=== PATIENT | female | born 1970 | race Hispanic/Latino ===

== ENCOUNTER → 2018-08-11 | Outpatient (CLI) | payer MEDICAID | END | disposition home or self-care (01) | LOC: RAH 15:49 | PROVIDERS: ATTEND Family Medicine | DX: M54.2 Cervicalgia (principal) | CPT/HCPCS: 72040 ==

== ENCOUNTER 2021-04-15 22:07 | Emergency (ER) | payer OTHER ==
[~2021-04-15] VITALS: Ht 167.6 cm; Wt 83.9 kg
[2021-04-15 23:38] LABS: BASOPHILS % (AUTO) 0.2 % (0.0-5.0); EOSINOPHILS % (AUTO) 2.1 % (0.0-8.0); MEAN CORPUSCULAR HEMOGLOBIN 30.6 pg (27.0-33.0); MEAN CORPUSCULAR HGB CONC 34.1 g/dL (32.0-36.0); MEAN CORPUSCULAR VOLUME 89.7 fL (79-99); MONOCYTES % (AUTO) 4.3 % (3.0-13.0); NEUTROPHILS % (AUTO) 89.9 % (40.0-77.0); PLATELET COUNT (AUTO) 228 K/uL (130-400); RED BLOOD CELL COUNT(AUTO) 5.46 MIL/uL (4.00-5.50); RED CELL DISTRIBUTION WIDTH 14.2 % (11.0-15.5); WHITE BLOOD COUNT (AUTO) 8.1 K/uL (4.8-10.8)
[2021-04-16 00:10] LABS: CREATININE 0.9 mg/dL (0.5-1.5); POTASSIUM 3.6 mmol/L (3.5-5.1)
[2021-04-16 00:14] LABS: ALBUMIN 3.7 g/dL (3.5-5.0); BILIRUBIN,TOTAL 0.9 mg/dL (0.2-1.0); TOTAL PROTEIN, SERUM 7.7 g/dL (6.0-8.3)
[2021-04-16] MEDS ORDERED: PROMETHAZINE HCL 25 MG/ML 1ML AMPULE IM SCH (01:45)
[2021-04-16] MEDS ORDERED: PANTOPRAZOLE SODIUM 40 MG TABLET.DR PO SCH (01:45)
[2021-04-16] MEDS ORDERED: ONDANSETRON ODT 4 MG TAB SL ONE (01:45)
[2021-04-16] MEDS ORDERED: FAMOTIDINE 20MG TAB 20 MG TAB PO ONE (01:45)
[2021-04-16] MEDS ORDERED: PANT40TA PO (01:51)
[2021-04-16] MEDS ORDERED: DICY20TA2 PO (01:51)
[2021-04-16] MEDS ORDERED: METO10TA41 PO (01:51)
[2021-04-16] MEDS ORDERED: ONDA4TAB10 PO (01:51)
[2021-04-16 01:59] VITALS: BP 116/75
== END 2021-04-16 02:34 | disposition home or self-care (01) ==
LOC: EDH 22:07
DX: K29.70 Gastritis, unspecified, without bleeding (principal); B34.9 Viral infection, unspecified; E11.9 Type 2 diabetes mellitus without complications; I10 Essential (primary) hypertension; Z79.4 Long term (current) use of insulin
CPT/HCPCS: 36415; 71045; 80053; 83690; 85025; 96372; 99284; J2550

== ENCOUNTER 2024-01-10 12:16 | Emergency (ER) | payer OTHER ==
[~2024-01-10] VITALS: Ht 165.1 cm; Wt 86.2 kg
[~2024-01-10 12:16] MED LIST: DICY20TA2 PO; METO10TA41 PO; ONDA4TAB10 PO; PANT40TA PO
[2024-01-10 12:59] LABS: BASOPHILS # (AUTO) 0.03 K/uL (0.00-0.20); BASOPHILS % (AUTO) 0.7 % (0.0-5.0); EOSINOPHILS # (AUTO) 0.09 K/uL (0.00-0.70); EOSINOPHILS % (AUTO) 2.2 % (0.0-8.0); HEMATOCRIT 42.8 % (36-48); IMMATURE GRANULOCYTE ABSOLUTE 0.01 K/uL (0-1); LYMPHOCYTES % (AUTO) 25.7 % (21.0-51.0); MEAN CORPUSCULAR HEMOGLOBIN 29.1 pg (27.0-33.0); MEAN CORPUSCULAR HGB CONC 32.9 g/dL (32.0-36.0); MEAN CORPUSCULAR VOLUME 88.2 fL (79-99); MONOCYTES # (AUTO) 0.4 K/uL (0.1-1.0); MONOCYTES % (AUTO) 9.9 % (3.0-13.0); NEUTROPHILS # (AUTO) 2.5 K/uL (1.8-7.7); NEUTROPHILS % (AUTO) 61.3 % (40.0-77.0); PLATELET COUNT (AUTO) 275 K/uL (130-400); RED BLOOD CELL COUNT(AUTO) 4.85 MIL/uL (4.00-5.50); RED CELL DISTRIBUTION WIDTH 13.5 % (11.0-15.5)
[2024-01-10 13:09] LABS: CREATININE 0.9 mg/dL (0.5-1.5); POTASSIUM 4.1 mmol/L (3.5-5.1)
[2024-01-10 13:14] LABS: ALBUMIN 3.3 g/dL (3.5-5.0); BILIRUBIN,TOTAL 0.9 mg/dL (0.2-1.0); TOTAL PROTEIN, SERUM 7.2 g/dL (6.0-8.3)
[2024-01-10] MEDS ORDERED: METH4TAB3 PO (16:17)
[2024-01-10] MEDS: SOLU-MEDROL 125MG VIAL IVP ONE (16:31)
[2024-01-10] MEDS: ALBUTEROL 0.083% 2.5 MG/3 ML INH IH ONE (16:31)
[2024-01-10 16:44] VITALS: PULSE 81; RESP 18
[2024-01-10 18:07] VITALS: BP 129/71; PULSE 78; RESP 16; O2SAT 98
== END 2024-01-10 18:08 | disposition home or self-care (01) ==
LOC: EDH 12:16
DX: J45.909 Unspecified asthma, uncomplicated (principal); J20.9 Acute bronchitis, unspecified; I10 Essential (primary) hypertension; E11.9 Type 2 diabetes mellitus without complications; E78.00 Pure hypercholesterolemia, unspecified; Z79.899 Other long term (current) drug therapy; Z90.49 Acquired absence of other specified parts of digestive tract; Z98.890 Other specified postprocedural states
CPT/HCPCS: 99285; 96374; 71045; 80053; 85025; 36415; 93005; 94640; J2930

== ENCOUNTER 2024-02-17 00:58 | Emergency (ER) | payer SELFPAY ==
[~2024-02-17] VITALS: Ht 167.6 cm; Wt 95.7 kg
[~2024-02-17 00:58] MED LIST changes: +METH4TAB3 PO; +ONDA-243 PO; -ONDA4TAB10 PO
[2024-02-17] MEDS: DiphenhydrAMINE HCL 50 MG/ML VIAL IV ONE (02:03)
[2024-02-17] MEDS: SOLU-MEDROL 125MG VIAL IVP ONE (02:03)
[2024-02-17] MEDS: VANCOMYCIN KIT 1 GM/250 ML IV.KIT IV ONE (02:10)
[2024-02-17] MEDS ORDERED: CLIN-141 PO (03:28)
[2024-02-17] MEDS ORDERED: DIPH50 PO (03:29)
[2024-02-17] MEDS ORDERED: IBUP-1493 PO (03:30)
[2024-02-17 05:03] VITALS: BP 144/79; PULSE 89; RESP 18; O2SAT 100
== END 2024-02-17 05:05 | disposition home or self-care (01) ==
LOC: EDH 00:58
DX: L03.032 Cellulitis of left toe (principal); T50.905A Adverse effect of unspecified drugs, medicaments and biological substances, initial encounter; Y92.89 Other specified places as the place of occurrence of the external cause; I10 Essential (primary) hypertension; E11.9 Type 2 diabetes mellitus without complications; E78.00 Pure hypercholesterolemia, unspecified; Z79.899 Other long term (current) drug therapy; Z90.49 Acquired absence of other specified parts of digestive tract; Z98.890 Other specified postprocedural states
CPT/HCPCS: 99284; 96365; 96375; J1200; J2919; J3370

== ENCOUNTER 2024-02-19 11:39 | Emergency (ER) | payer OTHER ==
[~2024-02-19] VITALS: Ht 167.6 cm; Wt 90.7 kg
[~2024-02-19 11:39] MED LIST changes: +CLIN-141 PO; +DIPH50 PO; +IBUP-1493 PO; -ONDA-243 PO; +ONDA4TAB10 PO
[2024-02-19 12:57] LABS: BASOPHILS # (AUTO) 0.02 K/uL (0.00-0.20); BASOPHILS % (AUTO) 0.3 % (0.0-5.0); EOSINOPHILS # (AUTO) 0.37 K/uL (0.00-0.70); EOSINOPHILS % (AUTO) 6.3 % (0.0-8.0); HEMATOCRIT 43.1 % (36-48); IMMATURE GRANULOCYTE ABSOLUTE 0.02 K/uL (0-1); LYMPHOCYTES # (AUTO) 1.3 K/uL (1.0-4.8); LYMPHOCYTES % (AUTO) 21.4 % (21.0-51.0); MEAN CORPUSCULAR HEMOGLOBIN 29.9 pg (27.0-33.0); MEAN CORPUSCULAR HGB CONC 32.7 g/dL (32.0-36.0); MEAN CORPUSCULAR VOLUME 91.3 fL (79-99); MONOCYTES # (AUTO) 0.5 K/uL (0.1-1.0); MONOCYTES % (AUTO) 9.1 % (3.0-13.0); NEUTROPHILS # (AUTO) 3.7 K/uL (1.8-7.7); NEUTROPHILS % (AUTO) 62.6 % (40.0-77.0); PLATELET COUNT (AUTO) 313 K/uL (130-400); RED BLOOD CELL COUNT(AUTO) 4.72 MIL/uL (4.00-5.50); RED CELL DISTRIBUTION WIDTH 15.7 % (11.0-15.5); WHITE BLOOD COUNT (AUTO) 5.9 K/uL (4.8-10.8)
[2024-02-19 13:03] LABS: CREATININE 0.7 mg/dL (0.5-1.0); POTASSIUM 3.5 mmol/L (3.5-5.1)
[2024-02-19 13:08] LABS: ALBUMIN 3.4 g/dL (3.5-5.0); BILIRUBIN,TOTAL 1.3 mg/dL (0.2-1.0); TOTAL PROTEIN, SERUM 6.9 g/dL (6.0-8.3)
[2024-02-19] MEDS: KETOROLAC 15MG/ML VIAL (15MG/ML) IV ONE (13:46)
[2024-02-19] MEDS: CEFTRIAXONE 1G VIAL IVPB ONE (13:48)
[2024-02-19] MEDS ORDERED: HYD25 PO (14:56)
[2024-02-19] MEDS: HYDROXYZINE 25 MG TABLET PO ONE (15:00)
[2024-02-19] MEDS: BACITRACIN 1 EACH PACKET TP ONE (15:00)
[2024-02-19] MEDS: LIDOCAINE HCL 1% 20 ML VIAL INJ SCH (15:08)
[2024-02-19 15:09] VITALS: BP 167/85; PULSE 84; RESP 18; O2SAT 98
== END 2024-02-19 15:57 | disposition home or self-care (01) ==
LOC: EDH 11:39
DX: L03.032 Cellulitis of left toe (principal); L29.9 Pruritus, unspecified; E11.9 Type 2 diabetes mellitus without complications; I10 Essential (primary) hypertension; Z79.1 Long term (current) use of non-steroidal anti-inflammatories (NSAID); Z79.899 Other long term (current) drug therapy; Z88.0 Allergy status to penicillin; Z90.49 Acquired absence of other specified parts of digestive tract; Z90.710 Acquired absence of both cervix and uterus
CPT/HCPCS: 99284; 96365; 10060; 96375; 80053; 85025; 87040 ×2; 83605; 36415; 73620; J0696; J1885

== ENCOUNTER 2024-12-17 18:13 | Emergency (ER) | payer OTHER ==
[~2024-12-17] VITALS: Ht 165.1 cm; Wt 86.2 kg
[~2024-12-17 18:13] MED LIST changes: +HYD25 PO; +ONDA-243 PO; -ONDA4TAB10 PO
--- NOTE | 2024-12-17 18:30 | ERN ---
ED Note History of Present Illness Stated Complaint: SYNCOPE Chief Complaint: Syncope Time Seen by MD: 18:15 Dictation: PATIENT IS A 54-YEAR-OLD FEMALE COMING IN TODAY FROM HOME AFTER EMS STATES SHE HAD GONE TO A LOCAL PLASMA DONATION CENTER AND DO NOT RELATED A UNIT OF PLASMA. WHEN SHE GOT HOME SHE FELT WEAK AND LAID DOWN ON THE FLOOR. SHE WAS HYPOTENSIVE AT SCENE 86/50 HOWEVER WAS AROUSABLE. THEY HAVE GIVEN HER HALF A L OF NORMAL SALINE BLOOD PRESSURE IS CURRENTLY NORMALIZED AND PATIENT ABLE TO ANSWER SIMPLE QUESTIONS. BLOOD SUGAR ON SCENE WAS 126 PER EMS. PATIENT DENIES CHEST PAIN BACK PAIN HEADACHE OR SOB. Allergies: Coded Allergies: No Known Drug Allergies (Unverified Allergy, Unknown, 04/16/21) Penicillins (Unverified Allergy, Unknown, 02/17/24) RASH pregabalin (Unverified Allergy, Unknown, 02/19/24) Home Meds Active Scripts Hydroxyzine HCl (Atarax) 25 Mg Tab, 25 MG PO TID, #25 TAB Prov:ENEDELIA PRICE MD 02/19/24 Ibuprofen (Motrin/Advil) 800 Mg Tab, 800 MG PO TID, #30 TAB Prov:EMPERATRIZ ESTRADA MD 02/17/24 Diphenhydramine HCl (Benadryl) 50 Mg Cap, 50 MG PO QID PRN for itching for 10 Days, #30 CAP 0 Refills Prov:EMPERATRIZ ESTRADA MD 02/17/24 Clindamycin HCl (Clindamycin HCl) 300 Mg Capsule, 1 CAP PO QID for 10 Days, #40 CAP 0 Refills Prov:EMPERATRIZ ESTRADA MD 02/17/24 Methylprednisolone (Medrol) 4 Mg Tab.ds.pk, 4 MG PO AD for 6 Days, #1 PACK Prov:CARLOS KIMBALL MD 01/10/24 Pantoprazole Sodium (Protonix) 40 Mg Tablet.dr, 40 MG PO DAILY, #10 TAB 0 Refills Prov:YURI BENSON MD 04/16/21 Metoclopramide HCl (Reglan 10 mg Tab) 10 Mg Tablet, 10 MG PO TIDP, #20 TAB 0 Refills Prov:YURI BENSON MD 04/16/21 Ondansetron (Ondansetron Odt) 4 Mg Tab.rapdis, 4 MG PO Q6HPRN, #20 TAB 0 Refills Prov:YURI BENSON MD 04/16/21 Dicyclomine HCl (Bentyl) 20 Mg Tab, 20 MG PO Q6HPRN, #20 TAB 0 Refills Prov:YURI BENSON MD 04/16/21 Past Medical History Past Medical History: Diabetes-Type II, Hypertension Surgical History: Surgical History Other: BACK SPINE Social History: Negative History: Not Applicable RN Note Reviewed/Agreed w/PFSH: Yes Review of System Dictation CONSTITUTIONAL: NEGATIVE EXCEPT FOR HPI HEAD/FACE: NEGATIVE EXCEPT FOR HPI EENT: NEGATIVE EXCEPT FOR HPI RESPIRATORY: NEGATIVE EXCEPT FOR HPI GASTROINTESTINAL/ABDOMINAL: NEGATIVE EXCEPT FOR HPI GENITOURINARY: NEGATIVE EXCEPT FOR HPI MUSCULOSKELETAL: NEGATIVE EXCEPT FOR HPI INTEGUMENTARY: NEGATIVE EXCEPT FOR HPI NEUROLOGICAL/PSYCH: NEGATIVE EXCEPT FOR HPI SYNCOPE HEMATOLOGIC/LYMPHATIC: NEGATIVE EXCEPT FOR HPI ALL SYSTEMS NEGATIVE, EXCEPT NOTED ABOVE. 13 POINT REVIEW OF SYSTEMS ASSESSED AND ALL NEGATIVE EXCEPT FOR ABOVE. Initial Vital Sign VS Vital Signs Date Time Temp Pulse Resp B/P (MAP) Pulse Ox O2 Delivery O2 Flow Rate FiO2 12/17/24 18:14 97.5 70 14 103/70 95 Room Air* 0 21 Physical Exam Dictation VITAL SIGNS REVIEWED GENERAL APPEARANCE: ALERT, ORIENTED X 3, NO ACUTE DISTRESS, WELL DEVELOPED, NOURISHED. HEAD AND FACE: NON-TRAUMATIC. EYES: PERRL, PINK CONJUNCTIVAS, EYELID NO TRAUMA, ANTERIOR CHAMBER WITH ARCUS SENILIS. EARS: PINNAS INTACT AND NO SIGNS OF TRAUMA OR ERYTHEMA EAR CANALS CLEAR AND NO DISCHARGE TM NO ERYTHEMA NOSE: NO DISCHARGE, NO BLEEDING. OROPHARYNX: MOUTH NORMAL, TONGUE PINK, PHARYNX CLEAR,NO ERYTHEMA, TONSILS NO EXUDATES, NO ABSCESSES NOTED, MUCOUS MEMBRANE MOIST NECK: SUPPLE, NON-TENDER, NO THYROMEGALY, NO MASSES, NO JVD, NO BRUITS BREAST:DEFERRED CHEST:NO TENDERNESS, NO CREPITUS, NO PARADOXICAL MOVEMENT, NO RETRACTIONS LUNGS:CLEAR, WELL-VENTILATED, SYMMETRIC, NO RALES, NO WHEEZING, NO RHONCHI, NO STRIDOR, GOOD BREATH SOUNDS BILATERALLY HEART: REGULAR RATE, REGULAR RHYTHM, NO MURMUR, NO GALLOPS VASCULAR: NO PERIPHERAL EDEMA, ABDOMEN: SOFT, POSITIVE BOWEL SOUNDS, NONDISTENDED, NO GUARDING, NONTENDER, NO REBOUND, NO MASSES NO HEPATOMEGALY, NO SPLENOMEGALY, NO FOURNIER'S SIGN, NO HERNIAS. RECTAL: DEFERRED GENITAL: DEFERRED NEUROLOGICAL: NORMAL SPEECH, MOTOR FUNCTION INTACT, SENSORY FUNCTION INTACT MUSCULOSKELETAL: NECK NONTENDER, FULL RANGE OF MOTION, BACK NONTENDER, FULL RANGE OF MOTION, EXTREMITIES: NONTENDER, FULL RANGE OF MOTION SKIN: COLOR PINK, DRY, NO TURGOR, NO RASH, NO LACERATIONS, NO ABRASIONS, NO CONTUSIONS. LYMPHATIC: DEFERRED Results (Laboratory/Radiology) Laboratory/Radiology Laboratory Tests Test 12/17/24 19:13 White Blood Count 15.9 K/uL (4.8-10.8) H Red Blood Count 4.94 MIL/uL (4.00-5.50) Hemoglobin 15.4 g/dL (12.0-16.0) Hematocrit 46.6 % (36-48) Mean Corpuscular Volume 94.3 fL (79-99) Mean Corpuscular Hemoglobin 31.2 pg (27.0-33.0) Mean Corpuscular Hemoglobin Concent 33.0 g/dL (32.0-36.0) Red Cell Distribution Width 14.5 % (11.0-15.5) Platelet Count 284 K/uL (130-400) Mean Platelet Volume 10.5 fL (7.5-10.5) Immature Granulocyte % (Auto) 0.6 % (0-1) Neutrophils (%) (Auto) 85.5 % (40.0-77.0) H Lymphocytes (%) (Auto) 7.8 % (21.0-51.0) L Monocytes (%) (Auto) 5.5 % (3.0-13.0) Eosinophils (%) (Auto) 0.3 % (0.0-8.0) Basophils (%) (Auto) 0.3 % (0.0-5.0) Neutrophils # (Auto) 13.6 K/uL (1.8-7.7) H Lymphocytes # (Auto) 1.2 K/uL (1.0-4.8) Monocytes # (Auto) 0.9 K/uL (0.1-1.0) Eosinophils # (Auto) 0.04 K/uL (0.00-0.70) Basophils # (Auto) 0.05 K/uL (0.00-0.20) Absolute Immature Granulocyte (auto 0.10 K/uL (0-1) Nucleated Red Blood Cells 0.0 % (0.0-0.19) White Cell Morphology Comment See comments Sodium Level 137 mmol/L (136-145) Potassium Level 3.8 mmol/L (3.5-5.1) Chloride Level 103 mmol/L (101-111) Carbon Dioxide Level 30 mmol/L (21-32) Blood Urea Nitrogen 19 mg/dL (7-18) H Creatinine 1.0 mg/dL (0.5-1.0) Glomerular Filtration Rate Calc 67 mL/min (>90) Random Glucose 111 mg/dL (70-105) H Total Calcium 8.1 mg/dL (8.5-10.1) L Troponin I High Sensitivity 4 ng/L (4-50) Labs Reviewed?: Yes EKG Comment: EKG SINUS RHYTHM/HEART RATE 70/AXIS NORMAL/REMOTE CHANGES TO ANTERIOR LEADS. ED Course ED Course Orders Procedure Category Date Status Time Cbc With Differential LAB 12/17/24 Complete 18:21 Troponin I High LAB 12/17/24 Complete Sensitivity 18:21 12 Lead Ekg Tracing- EKG 12/17/24 Complete Technical 18:21 0.9%Nacl 1000ml (Ns PHA 12/17/24 Complete 1000ml) 18:30 Basic Metabolic Panel LAB 12/17/24 Complete 18:21 Current Medications Medications (Trade) Dose Ordered Sig/Jc Route PRN Reason Start Time Stop Time Status Last Admin Dose Admin Sodium Chloride 1,000 ml @ 0 mls/hr ONCE ONCE IV 12/17/24 18:30 12/17/24 18:31 DC 12/17/24 19:26 Vital Signs Date Time Temp Pulse Resp B/P (MAP) Pulse Ox O2 Delivery O2 Flow Rate FiO2 12/17/24 20:36 97.5 72 18 116/59 95 Room Air* 0 21 12/17/24 19:25 97.5 68 18 109/59 100 Room Air* 0 21 12/17/24 18:14 97.5 70 14 103/70 95 Room Air 0 12/17/24 18:14 97.5 70 14 103/70 95 Room Air* 0 21 2105/PATIENT NEUROLOGICALLY INTACT AND HEMODYNAMICALLY STABLE. DISCHARGED HOME WITH VASOVAGAL NEAR-SYNCOPE. TOLD TO FOLLOW UP WITH HER PRIMARY CARE DOCTOR IN 1-2 DAYS. HEART Score Response (Comments) Value Age: 45-65yrs (+1) 1 Risk Factors: 1-2 risk factors (+1) 1 Initial Troponin: Normal limit (0) 0 Total 2 Medical Decision Making MDM MDM: DIFFERENTIAL DIAGNOSIS: ACS/AMI/ELECTROLYTE IMBALANCE/DEHYDRATION/VASOVAGAL RESPONSE/SYNCOPE RATIONALE: TESTS CONSIDERED AND ORDERED SECONDARY TO SHARED DECISION MAKING INCLUDE: EKG/LABS PREVIOUS OUTSIDE RECORDS REVIEWED: OLD ER VISITS. RISK OF COMPLICATION AND/OR MORBIDITY OR MORTALITY OF PATIENT MANAGEMENT: NONE MEDICATIONS-PER MEDICATION RECONCILIATION NEED FOR HOSPITALIZATION: PATIENT DOES NOT MEET CRITERIA FOR HOSPITALIZATION. NO NEED FOR EMERGENCY MAJOR/MINOR SURGERY: NO THERE ARE NO SOCIAL CONCERNS WITH THIS PATIENT. PRESCRIPTION DRUG MANAGEMENT NO PRESCRIPTIONS WILL INCLUDE SYMPTOMATIC CARE PATIENT'S PRIOR EXTERNAL MEDICAL RECORDS FROM OTHER ER VISITS WERE REVIEWED BY ME INDICATED. PRIOR TESTING AND RESULTS FROM PREVIOUS VISITS WERE REVIEWED. PRIOR TESTS WERE TAKEN INTO ACCOUNT WITH MEDICAL DECISION MAKING AND RESOURCE UTILIZATION, INDEPENDENT HISTORIAN/HISTORIANS WERE USED TO OBTAIN COMPLETE MEDICAL HISTORY. I INDEPENDENTLY INTERPRETED THE TEST THAT WERE PERFORMED, RESULTS WERE REVIEWED BY ME AND CONSIDERED FINDINGS ON RADIOLOGY IF ORDERED. MEDICAL MANAGEMENT AND EXAMINATION INTERPRETATION DISCUSSIONS WERE HAD BY ME WITH OTHER QUALIFIED HEALTHCARE PROFESSIONALS INDICATED FOR THE PATIENT'S CARE. DX & DISP Disposition: Discharge Departure Impression: Primary Impression: Vasovagal near syncope Condition: Stable Additional Instructions: FOLLOW-UP WITH PRIMARY CARE PROVIDER IN 1 TO 2 DAYS. TAKE MEDICATIONS DIRECTED HERE IN THE EMERGENCY ROOM. OKAY TO CONTINUE HOME MEDICATIONS UNLESS OTHERWISE DISCUSSED DURING YOUR VISIT IN THE EMERGENCY ROOM TODAY. RETURN TO YOUR NEAREST EMERGENCY ROOM IF SYMPTOMS WORSEN OR IF THERE IS NO IMPROVEMENT. CALL 911 IF YOU NEED IMMEDIATE ASSISTANCE. TAKE TYLENOL OR MOTRIN [id number] NEEDED AND IF NO CONTRAINDICATIONS ARE PRESENT. INCREASE ORAL HYDRATION. A WOUND CULTURE OR URINE CULTURE WAS ORDERED HERE IN THE EMERGENCY ROOM DEPARTMENT PLEASE FOLLOW-UP WITH PRIMARY CARE PROVIDER AND ADVISE THEM TO GET REPEAT PORTS FROM OUR FACILITY. IF YOU HAD ANY MIO WRAP/SPLINTS THAT WERE APPLIED HERE, PLEASE DO NOT REMOVE THEM UNTIL YOU SEE YOUR PRIMARY CARE OR SPECIALTY. DO NOT DONATE PLASMA OR BLOOD UNTIL CLEARED BY YOUR PRIMARY CARE DOCTOR NEXT WEEK. DIET AND ACTIVITY TOLERATED OTHERWISE, INCREASE YOUR FLUIDS. Referrals: WHITNEY COFFEY MD (PCP) Time of Disposition: 21:06 I have reviewed the case, and I agree with, Diagnosis and Plan LISA DOUGLAS NP Dec 17, 2024 18:30
--- NOTE | 2024-12-17 19:02 | EKG ---
[facility] Test Date: 2024-12-17 Test Time: 18:58:21 Pat Name: KENDALL PARDO Department: ED Room: Gender: F Doll Maker: [id number] Requested By: LISA DOUGLAS Order Number: [id number] Reading MD: Davie Starr Measurements Intervals [place] Rate: 70 P: 38 [place]: 135 QRS: 5 QRSD: 90 T: 27 QT: 427 QTc: 459 Interpretive Statements Sinus rhythm Anterior infarct, old Compared to ECG 01/10/2024 12:41:45 No significant changes Electronically Signed On 12-18-2024 14:17:01 RAIL TRACK MAINTAINER by Davie Starr Please click the below link to view image of tracing.
[2024-12-17] MEDS: 0.9%NACL 1000ML 1,000 ML IV ONE (19:26)
[2024-12-17 19:32] LABS: BASOPHILS # (AUTO) 0.05 K/uL (0.00-0.20); BASOPHILS % (AUTO) 0.3 % (0.0-5.0); EOSINOPHILS # (AUTO) 0.04 K/uL (0.00-0.70); EOSINOPHILS % (AUTO) 0.3 % (0.0-8.0); HEMATOCRIT 46.6 % (36-48); LYMPHOCYTES # (AUTO) 1.2 K/uL (1.0-4.8); LYMPHOCYTES % (AUTO) 7.8 % (21.0-51.0); MEAN CORPUSCULAR HEMOGLOBIN 31.2 pg (27.0-33.0); MEAN CORPUSCULAR VOLUME 94.3 fL (79-99); MONOCYTES # (AUTO) 0.9 K/uL (0.1-1.0); MONOCYTES % (AUTO) 5.5 % (3.0-13.0); NEUTROPHILS # (AUTO) 13.6 K/uL (1.8-7.7); NEUTROPHILS % (AUTO) 85.5 % (40.0-77.0); PLATELET COUNT (AUTO) 284 K/uL (130-400); RED BLOOD CELL COUNT(AUTO) 4.94 MIL/uL (4.00-5.50); RED CELL DISTRIBUTION WIDTH 14.5 % (11.0-15.5); WHITE BLOOD COUNT (AUTO) 15.9 K/uL (4.8-10.8)
[2024-12-17 19:36] LABS: POTASSIUM 3.8 mmol/L (3.5-5.1)
[2024-12-17 20:36] VITALS: BP 116/59; PULSE 72; RESP 18; TEMP 97.5; O2SAT 95
--- NOTE | 2024-12-17 21:08 | NUR ---
PS IS ABLE TO AMBULATE.
== END 2024-12-17 21:11 | disposition home or self-care (01) ==
LOC: EDH 18:13
DX: R55 Syncope and collapse (principal); E11.9 Type 2 diabetes mellitus without complications; I10 Essential (primary) hypertension; I25.2 Old myocardial infarction; Z79.1 Long term (current) use of non-steroidal anti-inflammatories (NSAID); Z79.899 Other long term (current) drug therapy; Z88.0 Allergy status to penicillin; Z98.890 Other specified postprocedural states
CPT/HCPCS: 99284; 96360; 84484; 80048; 85025; 36415; 93005; J7030